=== PATIENT | male | born 1995 | race Two or more races ===

== ENCOUNTER 2023-07-18 14:59 | Inpatient (IN) | payer BC, MEDICAID ==
[~2023-07-18] VITALS: Ht 170.2 cm; Wt 88.5 kg
[2023-07-18 15:39] LABS: BASOPHILS % (AUTO) 0.4 % (0.0-2.0); EOSINOPHILS % (AUTO) 2.8 % (1.0-6.0); HEMATOCRIT 43.7 % (41-53); HEMOGLOBIN 14.9 g/dL (13.5-17.5); LYMPHOCYTES # (AUTO) 1.1 K/uL (1.0-4.8); LYMPHOCYTES % (AUTO) 18.3 % (22.0-44.0); MEAN CORPUSCULAR HEMOGLOBIN 29.3 pg (26.0-34.0); MEAN CORPUSCULAR VOLUME 86 fL (80-100); MONOCYTES # (AUTO) 0.6 K/uL (0.1-1.0); MONOCYTES % (AUTO) 10.3 % (2.0-9.0); NEUTROPHILS # (AUTO) 4.2 K/uL (1.8-7.7); NEUTROPHILS % (AUTO) 68.2 % (40.0-70.0); PLATELET COUNT (AUTO) 260 K/uL (150-450); RED BLOOD CELL COUNT(AUTO) 5.07 MIL/uL (4.50-5.90); RED CELL DISTRIBUTION WIDTH 12.9 % (11.5-14.5); WHITE BLOOD COUNT (AUTO) 6.2 K/uL (4.5-11.0)
[2023-07-18 15:48] LABS: ANION GAP 10 mmol/L (8-16); CALCIUM, TOTAL 8.8 mg/dL (8.8-10.5); CARBON DIOXIDE 26 mmol/L (22-29); CHLORIDE 102 mmol/L (98-107); CREATININE 0.75 mg/dL (0.60-1.30); GLOMERULAR FILTR. RATE CALC > 60 mL/min (>60); GLUCOSE,RANDOM 96 mg/dL (70-110); POTASSIUM 3.5 mmol/L (3.5-5.1); SODIUM SERUM 138 mmol/L (136-145); UREA NITROGEN, BLOOD 12 mg/dL (7-18)
[2023-07-18 15:50] LABS: ALCOHOL, BLOOD (SERUM) < 3 mg/dL (0-10)
[2023-07-18 15:55] LABS: ALANINE AMINOTRANSFERASE 32 U/L (12-78); ALBUMIN 4.1 g/dL (3.4-5.0); ALKALINE PHOSPHATASE 86 U/L (46-116); ASPARTATE AMINOTRANSFERASE 19 U/L (15-37); BILIRUBIN,TOTAL 0.6 mg/dL (0.1-1.0); TOTAL PROTEIN, SERUM 7.7 g/dL (6.4-8.2)
[2023-07-18] MEDS ORDERED: HALOPERIDOL 5 MG TABLET PO ONE (16:30)
[2023-07-18] MEDS ORDERED: LORazepam 2 MG TABLET PO ONE (16:30)
[2023-07-18] MEDS ORDERED: DiphenhydrAMINE HCL 25 MG CAPSULE PO ONE (16:30)
[2023-07-18 18:08] LABS: COVID AG,FIA SOURCE NASAL SWAB
[2023-07-18 18:14] LABS: PH,URINE DRUG SCREEN 5.5 (5.0-8.0)
[2023-07-18 18:19] LABS: ALCOHOL, URINE DRUG SCREEN NEGATIVE (NEGATIVE); AMPHET/METH SCREEN,URINE NEGATIVE (NEGATIVE); BARBITURATE SCREEN, URINE NEGATIVE (NEGATIVE); BENZODIAZEPINES SCREEN,URINE NEGATIVE (NEGATIVE); CANNABINOID SCREEN,URINE NEGATIVE (NEGATIVE); COCAINE SCREEN,URINE NEGATIVE (NEGATIVE); METHADONE SCREEN, URINE NEGATIVE (NEGATIVE); OPIATE SCREEN,URINE NEGATIVE (NEGATIVE); PHENCYCLIDINE SCREEN,URINE NEGATIVE (NEGATIVE)
[2023-07-18] MEDS ORDERED: LORazepam 2 MG TABLET PO PRN (19:15)
[2023-07-18] MEDS ORDERED: HALOPERIDOL 5 MG TABLET PO PRN (19:15)
[2023-07-18] MEDS ORDERED: ZOLPIDEM TARTRATE 10 MG TABLET PO PRN (19:15)
[2023-07-18 19:18] LABS: SARS-COV2 (COVID) ANTIGEN,FIA Negative (Negative)
[2023-07-19 16:00] VITALS: BP 111/74; PULSE 84; RESP 16; TEMP 98.2; O2SAT 97
[2023-07-19 21:11] VITALS: BP 111/74; PULSE 80; RESP 18; TEMP 98.2; O2SAT 97
[2023-07-20] MEDS ORDERED: CloNIDine HCL 0.1 MG TABLET PO PRN (06:45)
[2023-07-20] MEDS ORDERED: BACITRACIN 28 GM OINTMENT TP PRN (06:45)
[2023-07-20] MEDS ORDERED: DOCUSATE SODIUM 100 MG CAPSULE PO PRN (06:45)
[2023-07-20] MEDS ORDERED: MAG HYDROX/ALUMINUM HYD/SIMETH ES 30 ML SUSPENSION UDCUP PO PRN (06:45)
[2023-07-20] MEDS ORDERED: OMEPRAZOLE 20 MG CAPSULE PO PRN (06:45)
[2023-07-20] MEDS ORDERED: PETROLATUM,WHITE 28 GM JELLY TP PRN (06:45)
[2023-07-20] MEDS ORDERED: ONDANSETRON HCL 4 MG TABLET PO PRN (06:45)
[2023-07-20] MEDS ORDERED: IBUPROFEN 600 MG TABLET PO PRN (06:45)
[2023-07-20] MEDS ORDERED: ALBUTEROL SULFATE HFA 90 MCG/PUFF 8 GM INHALER IH PRN (06:45)
[2023-07-20] MEDS ORDERED: MAGNESIUM HYDROXIDE SUSPENSION 30 ML UDCUP PO PRN (06:45)
[2023-07-20] MEDS ORDERED: ACETAMINOPHEN 325 MG TABLET PO PRN (06:45)
[2023-07-20] MEDS ORDERED: BENZOCAINE/MENTHOL LOZENGE PO PRN (06:45)
[2023-07-20 08:17] VITALS: BP 117/60; PULSE 97; RESP 18; TEMP 98; O2SAT 97
[2023-07-20] MEDS ORDERED: INFLUENZA VIRUS VACCINE QVS 2023-24 (6MO+)/PF 60 MCG/0.5 ML SYRINGE IM. ONE (10:15)
[2023-07-20] MEDS: LOPERAMIDE HCL 2 MG CAPSULE PO PRN (11:49)
[2023-07-20 20:26] VITALS: BP 131/72; PULSE 83; RESP 18; TEMP 97.7; O2SAT 98
[2023-07-21 08:43] VITALS: BP 117/68; PULSE 87; RESP 18; TEMP 97.8; O2SAT 97
[2023-07-21 21:00] VITALS: BP 116/70; PULSE 92; RESP 17; TEMP 97.7; O2SAT 98
[2023-07-22 08:22] VITALS: BP 131/60; PULSE 64; RESP 18; TEMP 97.9; O2SAT 97
[2023-07-22] MEDS ORDERED: SERTRALINE HCL 50 MG TABLET PO SCH (09:00)
[2023-07-22] MEDS: LOPERAMIDE HCL 2 MG CAPSULE PO PRN (12:42)
[2023-07-22] MEDS ORDERED: SERT-158 PO (14:46)
== END 2023-07-22 16:00 | disposition home or self-care (01) | DRG 881 ==
LOC: EMS 15:00 → B2S 07-19 12:51
PROVIDERS: ADMIT Psychiatry & Neurology Psychiatry; ATTEND Psychiatry & Neurology Psychiatry
DX: F32.9 Major depressive disorder, single episode, unspecified (principal); R45.851 Suicidal ideations; F25.1 Schizoaffective disorder, depressive type; F10.10 Alcohol abuse, uncomplicated; F41.9 Anxiety disorder, unspecified; G47.00 Insomnia, unspecified; K59.00 Constipation, unspecified; Z20.822 Contact with and (suspected) exposure to COVID-19
CPT/HCPCS: 80053; 80307; 85025; 90686; G0480

== ENCOUNTER 2023-09-03 16:16 | Emergency (ER) | payer BC, OTHER ==
[~2023-09-03] VITALS: Ht 170.2 cm; Wt 90.8 kg
[~2023-09-03 16:16] MED LIST: SERT-158 PO
[2023-09-03 16:29] VITALS: BP 123/76; PULSE 116; RESP 18; TEMP 98.2
[2023-09-03] MEDS ORDERED: RISP1TAB48 PO (16:30)
[2023-09-03] MEDS ORDERED: RISP2TAB45 PO (16:30)
[2023-09-03] MEDS ORDERED: SERT-440 PO (16:30)
[2023-09-03] MEDS ORDERED: HYDR-4808 PO (16:30)
[2023-09-04] MEDS ORDERED: HYDR50CA7 PO (16:16)
== END 2023-09-03 19:52 | disposition left against medical advice (07) ==
LOC: EMS 16:47
DX: Z04.6 Encounter for general psychiatric examination, requested by authority (principal); Z53.21 Procedure and treatment not carried out due to patient leaving prior to being seen by health care provider
CPT/HCPCS: 99281; Z7502